=== PATIENT | male | born 1965 | race Caucasian/White ===

== ENCOUNTER 2022-12-23 08:22 | Outpatient (CLI) | payer OTHER | END 2022-12-23 08:23 | disposition home or self-care (01) | LOC: SC 08:22 | PROVIDERS: ATTEND Nurse Practitioner Family | DX: G47.33 Obstructive sleep apnea (adult) (pediatric) (principal); R09.02 Hypoxemia; E66.9 Obesity, unspecified; Z68.33 Body mass index [BMI] 33.0-33.9, adult | CPT/HCPCS: 95806 ==

== ENCOUNTER 2023-02-01 15:23 | Outpatient (CLI) | payer OTHER ==
--- NOTE | 2023-02-01 15:51 | Sleep Patient Instructions ---
Sleep Center Visit Summary - Patient Visit Information Reason for Visit: Sleep Study followup - Patient Instructions Instructions Attached: CPAP Dc, CPAP Additional Instructions: I recommend that you be started on CPAP therapy. You are going to discuss with and get back to us on treatment choice. Please call office to schedule a follow up appointment in the sleep care office is dependant on treatment choice. - Clinic Information Contact: [facility] [address] [place] [address] [email or web address] T: [phone]
--- NOTE | 2023-02-01 15:57 | SLEEP CARE CONSULTATION ---
Information from patient questionnaire entered by Sulma Dailey. I have reviewed and concur with the information entered by Sulma Dailey. This document represents the service I personally performed and the decisions made by , Ria Dia ARNP. History of Present Illness Service Date and Time: 02/01/2023 152 Initial [place] Sleepiness Scale score: 6 (11/05/22) Current [place] Sleepiness Scale score: 2 (02/01/23) Additional HPI information: FEDERICO BOYER returns for follow up and results of the recently performed home sleep study. His sleep study showed moderate obstructive sleep apnea with an average AHI of 23.3 and abe oxygen saturation of 93%. I explained the pathophysiology behind obstructive sleep apnea. We then spent quite a bit of time discussing different treatment options. For mild obstructive sleep apnea, surgery and oral appliance are alternatives to nasal CPAP therapy but in moderate or severe cases, nasal CPAP is the most effective and reliable treatment. I reviewed the impact of weight changes on sleep apnea and strongly recommended losing weight. I recommended that he try the CPAP machine. I explained how CPAP machine works. Patient was cautioned about risks of drowsy driving until sleepiness symptoms resolve. Sleep Study - Results Type of Sleep Study: Home sleep study (COMPLETED 12/23/22) Prior sleep studies: No Polysomnography/Home Sleep Study results: Physician Impression: The quality of the study is good. The length of the study is adequate (> 240 minutes). Please also see the tabulated and graphic data. 1. Obstructive Sleep Apnea-Hypopnea (ICD-10 G47.33), moderate, with an AHI of 2 3.3/hr and abe SaO2 of 80%. During the study, the patient had 18 apneas (18 obstructive, 0 central, 0 mixed) and 215 hypopneas. The longest episode lasted 96.5 seconds. The respiratory events occurred more frequently during supine sleep (supine AHI was 37.6 and non-supine, 11.22). 2. Hypoxemia (ICD-10 R09.02), mild, with the lowest oxygen saturation of 80 % and 36.3 minutes with SaO2 under 90%. Baseline oxygen saturation was normal (Average oxygen saturation was 93%). Allergies and Home Medications Known drug allergies: Yes Drug allergies reviewed: Yes Home medication list reviewed: Yes (no changes) Allergy and home medication list: Allergies cephalexin [From Keflex] Allergy (Verified 01/31/23 09:46) Review of Systems Review of systems same as previous: Yes (NO CHANGE) Physical Exam Vital signs obtained and entered by: SULMA Arenas MA Blood Pressure: 128/62 (LEFT ARM) Cuff size: regular Heart Rate: 72 O2 Saturation: 99 Height: 5 ft 11 in Weight: 242 lb 12.8 oz Body Mass Index: 33.8 BMI Classification: Obese Impression and Plan 1. Obstructive Sleep Apnea-Hypopnea Syndrome, moderate, with lowest oxygen saturation of 80%. Obviously this is the cause of the patients symptoms of unrefreshed sleep, and excessive daytime sleepiness. Positive pressure therapy could benefit hypertension and diabetes. I recommended that he try the CPAP but he would like to discuss things with his before he makes a decision on treatment. He may also try an oral appliance with positional therapy since his has less (mild obstructions) when sleeping non-supine. He was advise to sleep on his side until he is able to start therapy to reduce the apneas overall. He voiced understanding. He will call our office with his decision. 2. Hypoxemia, mild, with a abe oxygen saturation of 80% and 36.3 minutes spent under 90%. His baseline oxygen saturation was normal with an average oxygen saturation of 93%. 3. Obesity, unspecified. Currently patients BMI is 33.8. Obesity increases the risk of apnea, CPAP pressure requirements and overall health risks especially cardiovascular and diabetes. Thus patient is advised to lose weight. * Patient to call with his choice of therapy * Attempt to lose weight. * Avoid supine sleep. * The patient is again cautioned about driving until sleepiness completely resolves. * Return will be determined based on therapy. I will assess response to therapy and compliance at that time. Counseling Topics: Sleeping position, Weight loss health impact Visit Type: In Office Time Spent with Patient (minutes): 17 Provider Statement: I spent 100% of the Face to Face Visit with the patient with greater than 50% spent counseling the patient and coordination of care.
[2023-02-01 16:21] VITALS: BP 128/62; O2SAT 99
== END 2023-02-01 15:24 | disposition home or self-care (01) ==
LOC: SC 15:23
PROVIDERS: ATTEND Nurse Practitioner Family
DX: G47.33 Obstructive sleep apnea (adult) (pediatric) (principal); R09.02 Hypoxemia; E66.9 Obesity, unspecified; Z68.33 Body mass index [BMI] 33.0-33.9, adult
CPT/HCPCS: 99212

== ENCOUNTER 2023-07-01 08:21 | Outpatient (CLI) | payer OTHER ==
--- NOTE | 2023-07-01 09:07 | Sleep Patient Instructions ---
Sleep Center Visit Summary - Patient Visit Information Reason for Visit: 6-week follow-up - Patient Instructions Additional Instructions: You were here for follow up of CPAP therapy. You will be continued on CPAP therapy with pressure at 7-10 cmH2O. You should follow up with sleep care in 1-2 months. You may contact us sooner for any questions or concerns. - Clinic Information Contact: [facility] [address] [place] [id number] [email or web address] T: [phone]
--- NOTE | 2023-07-01 09:12 | SLEEP CARE CONSULTATION ---
Information from patient questionnaire entered by Tanvi Dailey. I have reviewed and concur with the information entered by Tanvi Dailey. This document represents the service I personally performed and the decisions made by me, Ria Dia ARNP. History of Present Illness Service Date and Time: 07/01/2023820 Previous diagnosis: Moderate, Obstructive Sleep Apnea-Hypopnea Syndrome AHI: 23.3 (12/23/22) Reason for follow up: other (6 WEEK F/U ) Accompanied by: Spouse Equipment type: CPAP (RESMED AIRSENSE 11 AUTOSET SET UP DATE 03/08/23) Equipment obtained from: [employer] (getting supplies) Mask style: Full face (F20) Backup mask available: Yes (other mask) Last cushion change: 2 weeks Prior sleep studies: No Type of Sleep Study: Home sleep study (COMPLETED 12/23/22) HPI additional information: FEDERICO BOYER was diagnosed to have moderate, AHI 23.3, obstructive sleep apnea- hypopnea syndrome and returned today for CPAP therapy six week follow-up. Sleep Study - Results Type of Sleep Study: Home sleep study (COMPLETED 12/23/22) Prior sleep studies: No CPAP Compliance Data - Data Reviewed with Patient Average duration of nightly device use: 3 HRS 14 MINS Compliance rate %: 36 (05/16/23-06/28/23; 64% in last 2 weeks) Current pressure setting (cmH2O): 7-10 ( avg 95% 9.5) Average residual AHI: 4.7 Central apnea: 1.5 Obstructive apnea: 0.8 Hypopnea: 2.3 Average large leak: 7.5 L/min Subjective Missed days of use due to: reports: mask issues, other (take off unknowningly; pressure goes to high) Patient concerns: reports: aerophagia (improving with full face mask), dry mouth, nose, throat (dry mouth). denies: mask discomfort, air blowing in eyes, mask leak noise, condensation in mask/hose, nasal congestion, epistaxis Observed to snore while using device: Yes (only once) Current pressure setting perceived as: too high On therapy, patient: reports: sleeping better (sleeping deeper), other (still waking up more than likes). denies: drowsiness while driving Initial [place] Sleepiness Scale score: 6 (11/05/22) Current [place] Sleepiness Scale score: 8 (07/01/23) Allergies and Home Medications Known drug allergies: Yes (as listed) Drug allergies reviewed: Yes Home medication list reviewed: Yes (no changes) Allergy and home medication list: Allergies cephalexin [From Keflex] Allergy (Verified 06/29/23 13:09) Review of Systems Review of systems same as previous: Yes (NO CHANGE) Physical Exam Vital signs obtained and entered by: TANVI Arenas MA Blood Pressure: 153/70 (LEFT ARM) Cuff size: regular Heart Rate: 66 O2 Saturation: 99 Height: 5 ft 11 in Weight: 238 lb 3.2 oz Body Mass Index: 33.2 BMI Classification: Obese Impression and Plan 1. Obstructive Sleep Apnea-Hypopnea Syndrome, moderate, with poor treatment compliance and good apnea control. He sometimes feels the pressure is too high when he wakes up at night and we discussed how the pressure does ramp up as he is sleeping to control his sleep apnea. His average residual AHI is at 4.7 and I do not feel it would be helpful to reduce his pressure at that time. His compliance is still low but he has increased his compliance since his last appointment. He changed to a fullface mask that he obtained on [employer] that his says is a F20. He has been using it for 2 weeks and feels that CPAP therapy is going much better. Since starting to use his fullface mask in the last 2 weeks his compliance has gone up to 64%. He feels he is sleeping deeper but is still waking up more often with mask leak noise or air into his eyes sometimes. We discussed trying to use a CPAP pillow to help reduce dislodging of the mask when he is on his side and he voiced understanding. His says she will look for 1 online today. Patient's apnea severity and rationale for treatment to reduce apnea, improve sleep quality and reduce cardiovascular and cerebrovascular events was reviewed. I also reviewed the benefit of consistent device use of CPAP for hypertension, diabetes. 2. Obesity, unspecified. Currently patients BMI is 33.2. Obesity increases the risk of apnea, CPAP pressure requirements and overall health risks especially cardiovascular and diabetes. Thus patient is advised to lose weight. * Continue auto CPAP pressure at 7-10 cmH2O * Notify me if snoring with mask or feeling that the pressure is too much or too little * Attempt to lose weight * Call this office if any problems using CPAP * Return for follow up in 1-2 months, or sooner if concerns arise Counseling Topics: Weight loss health impact Follow up with Sleep Care in: 1-2 months Visit Type: In Office Time Spent with Patient (minutes): 26 Provider Statement: I spent 100% of the Face to Face Visit with the patient with greater than 50% spent counseling the patient and coordination of care.
[2023-07-01 09:16] VITALS: BP 153/70; O2SAT 99
== END 2023-07-01 08:22 | disposition home or self-care (01) ==
LOC: SC 08:21
PROVIDERS: ATTEND Nurse Practitioner Family
DX: G47.33 Obstructive sleep apnea (adult) (pediatric) (principal); E66.9 Obesity, unspecified; Z68.33 Body mass index [BMI] 33.0-33.9, adult
CPT/HCPCS: 99212; 99213

== ENCOUNTER 2023-07-29 08:21 | Outpatient (CLI) | payer OTHER ==
--- NOTE | 2023-07-29 08:55 | Sleep Patient Instructions ---
Sleep Center Visit Summary - Patient Visit Information Reason for Visit: 1 month follow-up - Patient Instructions Additional Instructions: You were here for follow up of CPAP therapy. You will be continued on CPAP therapy with pressure at 7-10 cmH2O. You should follow up with sleep care in 6 months. You may contact us sooner for any questions or concerns. - Clinic Information Contact: [facility] [address] [place] [address] [email or web address] T: [phone]
--- NOTE | 2023-07-29 09:01 | SLEEP CARE CONSULTATION ---
Information from patient questionnaire entered by Sulma Dailey. I have reviewed and concur with the information entered by Sulma Dailey. This document represents the service I personally performed and the decisions made by , Ria Dia ARNP. History of Present Illness Service Date and Time: 07/29/2023 08 Previous diagnosis: Moderate, Obstructive Sleep Apnea-Hypopnea Syndrome AHI: 23.3 (on 12/23/2022) Reason for follow up: one month (F/U) Equipment type: CPAP (RESMED 11, s/u 02/2023) Equipment obtained from: [employer] Mask style: Full face Mask brand: Resmed (F20) Backup mask available: Yes Last cushion change: 2 months Prior sleep studies: No Type of Sleep Study: Home sleep study (COMPLETED 12/23/22) HPI additional information: FEDERICO BOYER was diagnosed to have moderate, AHI 23.3, obstructive sleep apnea- hypopnea syndrome and returned today for CPAP therapy one month pressure change follow-up. Sleep Study - Results Type of Sleep Study: Home sleep study (COMPLETED 12/23/22) Prior sleep studies: No CPAP Compliance Data - Data Reviewed with Patient Average duration of nightly device use: 6 HRS 59 MINS Compliance rate %: 93 (06/28/23-07/27/23; 30/30 days used) Current pressure setting (cmH2O): 7-10 Average residual AHI: 4.6 Central apnea: 1.1 Obstructive apnea: 0.7 Hypopnea: 2.7 Average large leak: 11.4 L/min Subjective Patient concerns: reports: aerophagia (minimal), air blowing in eyes (occas ional), nasal congestion, dry mouth, nose, throat (once in a while, dry mouth). denies: mask discomfort, mask leak noise, condensation in mask/hose, epistaxis Observed to snore while using device: Yes (not often) Current pressure setting perceived as: comfortable On therapy, patient: reports: sleeping better, awakening more refreshed, more rested overall. denies: drowsiness while driving Initial [place] Sleepiness Scale score: 6 (11/05/22) Current [place] Sleepiness Scale score: 8 Allergies and Home Medications Known drug allergies: Yes (as listed) Drug allergies reviewed: Yes Home medication list reviewed: Yes (no changes) Allergy and home medication list: Allergies cephalexin [From Keflex] Allergy (Verified 07/28/23 11:09) Review of Systems Review of systems same as previous: Yes (no changes) Physical Exam Vital signs obtained and entered by: RIA DIGGS Blood Pressure: 155/77 Cuff size: long (right arm) Heart Rate: 61 O2 Saturation: 100 Height: 5 ft 11 in Weight: 240 lb 6.4 oz Weight change since last visit: 2 lb gain Body Mass Index: 33.5 BMI Classification: Obese Impression and Plan 1. Obstructive Sleep Apnea-Hypopnea Syndrome, moderate, with good treatment compliance and good apnea control. On CPAP therapy, the patient has better sleep quality and is more rested overall. Patient has significant improvement of their sleep apnea and is satisfied with current CPAP therapy. Patient is still getting used to the fullface but he does like it better than the nasal mask. He gets some occasional leaking into his eyes. Some dry mouth and nasal congestion and we discussed how to adjust the humidity to help reduce it. He may also use a nasal moisturizer in his nose to help reduce nasal congestion from nasal dryness. He voiced understanding. He is not ordering through his DME because it was a hassle. He is getting his supplies online. Patient's apnea severity and rationale for treatment to reduce apnea, improve sleep quality and reduce cardiovascular and cerebrovascular events was reviewed. I also reviewed the benefit of consistent device use of CPAP for hypertension, diabetes. 2. Obesity, unspecified. Currently patients BMI is 33.5. Obesity increases the risk of apnea, CPAP pressure requirements and overall health risks especially cardiovascular and diabetes. Thus patient is advised to lose weight. * Continue auto CPAP pressure at 7-10 cmH2O * Notify me if snoring with mask or feeling that the pressure is too much or too little * Attempt to lose weight * Call this office if any problems using CPAP * Return for follow up in 6 months, or sooner if concerns arise Counseling Topics: Spare mask, Weight loss health impact Follow up with Sleep Care in: 6 months Visit Type: In Office Time Spent with Patient (minutes): 24 Provider Statement: I spent 100% of the Face to Face Visit with the patient with greater than 50% spent counseling the patient and coordination of care.
[2023-07-29 09:03] VITALS: BP 155/77; O2SAT 100
== END 2023-07-29 08:22 | disposition home or self-care (01) ==
LOC: SC 08:21
PROVIDERS: ATTEND Nurse Practitioner Family
DX: G47.33 Obstructive sleep apnea (adult) (pediatric) (principal); E66.9 Obesity, unspecified; Z68.33 Body mass index [BMI] 33.0-33.9, adult
CPT/HCPCS: 99212; 99213